=== PATIENT | male | born 1965 | race Caucasian/White ===

== ENCOUNTER 2021-02-28 19:00 | Inpatient (IN) | payer OTHER ==
[~2021-02-28] VITALS: Ht 165.1 cm; Wt 83.9 kg
[2021-02-28 19:51] LABS: HEMOGLOBIN 14.8 gm/dl (14.0-17.5); RED BLOOD COUNT 5.22 M/UL (4.20-5.50)
[2021-02-28 20:13] LABS: BUN/CREATININE RATIO 24 (0-10)
[2021-03-02 04:49] LABS: HEMOGLOBIN 12.9 gm/dl (14.0-17.5); WHITE BLOOD COUNT 10.5 K/UL (4.5-11.0)
[2021-03-02 05:02] LABS: RED BLOOD COUNT 4.64 M/UL (4.20-5.50)
[2021-03-02 05:21] LABS: BUN/CREATININE RATIO 27 (0-10)
[2021-03-03 04:00] LABS: BUN/CREATININE RATIO 28 (0-10)
--- NOTE | 2021-03-03 17:21 | NUR ---
03/03/21 1720 PT SISTER HERE TO SEE PT, UPDATED ON PT STATUS. PT AWAKE, FOLLOWS WITH EYES, FOLLOWS MOST COMMANDS RAISE LEFT ARM, WIGGLE TOES (BILAT), WILL WAVE AND GIVE THUMBS UP UPON COMMAND. CONT TO BE APHASIC AND UNABLE TO MOVE RIGHT ARM.
--- NOTE | 2021-03-06 18:24 | NUR ---
PRINTED VITAL SIGN TREND FOR THE DAY AND PLACED IN CHART
--- NOTE | 2021-03-07 05:09 | NUR ---
PT NOTED TO BE SICK TO HIS STOMACH AND DRY HEAVING. NOTIFIED DR HARRISON SINCE HE HAD NO PRN NAUSEA ORDERS. ORDERS RECIEVED AND COMPLETED.
[2021-03-08 03:24] LABS: RED BLOOD COUNT 3.84 M/UL (4.20-5.50)
[2021-03-08 03:28] LABS: HEMOGLOBIN 10.7 gm/dl (14.0-17.5)
[2021-03-08 04:10] LABS: BUN/CREATININE RATIO 23 (0-10)
[2021-03-09 03:04] LABS: HEMOGLOBIN 10.7 gm/dl (14.0-17.5); RED BLOOD COUNT 3.88 M/UL (4.20-5.50); WHITE BLOOD COUNT 9.8 K/UL (4.5-11.0)
[2021-03-09 03:30] LABS: BUN/CREATININE RATIO 20 (0-10)
[2021-03-10 02:41] LABS: HEMOGLOBIN 11.3 gm/dl (14.0-17.5); RED BLOOD COUNT 4.1 M/UL (4.20-5.50); WHITE BLOOD COUNT 9.2 K/UL (4.5-11.0)
[2021-03-10 03:12] LABS: BUN/CREATININE RATIO 19 (0-10)
--- NOTE | 2021-03-10 13:24 | NUR ---
PATIENT RETURNS FROM SWALLOW EVAL PER RADIOLOGY STAFF.
[2021-03-11 03:35] LABS: HEMOGLOBIN 12.3 gm/dl (14.0-17.5); RED BLOOD COUNT 4.38 M/UL (4.20-5.50); WHITE BLOOD COUNT 9.9 K/UL (4.5-11.0)
[2021-03-11 03:55] LABS: BUN/CREATININE RATIO 22 (0-10)
[2021-03-12 03:31] LABS: RED BLOOD COUNT 4.37 M/UL (4.20-5.50)
[2021-03-12 04:00] LABS: BUN/CREATININE RATIO 29 (0-10)
[2021-03-13 03:07] LABS: HEMOGLOBIN 12.3 gm/dl (14.0-17.5); RED BLOOD COUNT 4.48 M/UL (4.20-5.50)
[2021-03-13 03:20] LABS: BUN/CREATININE RATIO 32 (0-10)
--- NOTE | 2021-03-13 16:22 | NUR ---
REPORT GIVEN TO [facility]K ON MED SURG 4 WITH ALL QUESTIONS ASKED AND ANSWERED
[2021-03-14 06:38] LABS: HEMOGLOBIN 13.1 gm/dl (14.0-17.5); RED BLOOD COUNT 4.74 M/UL (4.20-5.50)
[2021-03-14 07:17] LABS: BUN/CREATININE RATIO 22 (0-10)
--- NOTE | 2021-03-14 08:16 | NUR ---
PATIENT HAD CRITICAL LAB VALUE POTASSIUM OF 5.7. PROVIDER NOTIFIED SAID SHE WOULD PUT IN SOME ORDERS TO TRY TO GET PATIENT'S POTASSIUM DOWN.
[2021-03-15 04:59] LABS: HEMOGLOBIN 12.9 gm/dl (14.0-17.5); RED BLOOD COUNT 4.63 M/UL (4.20-5.50); WHITE BLOOD COUNT 13.1 K/UL (4.5-11.0)
[2021-03-15 05:11] LABS: BUN/CREATININE RATIO 31 (0-10)
--- NOTE | 2021-03-16 06:12 | NUR ---
PT DEVELOPED A COUGH WITH FEVER NOT CONTROLLED WITH TYLENOL. NOTIFIED FOR ORDER FOR COVID SWAB AND CHEST XRAY. RESULTS ARE POSITIVE FOR COVID. PLACE PATIENT IN ISOLATION, NOTIFIED DR. HARRISON AND [facility].
[2021-03-16 08:56] LABS: HEMOGLOBIN 11.9 gm/dl (14.0-17.5); RED BLOOD COUNT 4.39 M/UL (4.20-5.50)
[2021-03-16 09:23] LABS: WHITE BLOOD COUNT 5.1 K/UL (4.5-11.0)
[2021-03-16 09:31] LABS: BUN/CREATININE RATIO 31 (0-10)
[2021-03-17 07:31] LABS: HEMOGLOBIN 12.1 gm/dl (14.0-17.5); RED BLOOD COUNT 4.47 M/UL (4.20-5.50); WHITE BLOOD COUNT 5.7 K/UL (4.5-11.0)
[2021-03-17 07:48] LABS: BUN/CREATININE RATIO 28 (0-10)
[2021-03-18 03:41] LABS: HEMOGLOBIN 12.4 gm/dl (14.0-17.5); RED BLOOD COUNT 4.6 M/UL (4.20-5.50); WHITE BLOOD COUNT 4.4 K/UL (4.5-11.0)
[2021-03-18 04:43] LABS: BUN/CREATININE RATIO 27 (0-10)
[2021-03-19 03:12] LABS: HEMOGLOBIN 13.1 gm/dl (14.0-17.5); RED BLOOD COUNT 4.84 M/UL (4.20-5.50); WHITE BLOOD COUNT 5.1 K/UL (4.5-11.0)
[2021-03-19 03:32] LABS: BUN/CREATININE RATIO 32 (0-10)
--- NOTE | 2021-03-19 04:31 | NUR ---
APRROX 0300 DOBHOFF D/C PER MD ORDER. PT TOLERATED WELL.
[2021-03-20 06:58] LABS: HEMOGLOBIN 13.8 gm/dl (14.0-17.5); RED BLOOD COUNT 4.98 M/UL (4.20-5.50); WHITE BLOOD COUNT 5.5 K/UL (4.5-11.0)
[2021-03-20 07:14] LABS: BUN/CREATININE RATIO 28 (0-10)
[2021-03-21 05:11] LABS: HEMOGLOBIN 13.3 gm/dl (14.0-17.5); RED BLOOD COUNT 4.83 M/UL (4.20-5.50)
[2021-03-21 05:28] LABS: BUN/CREATININE RATIO 30 (0-10)
--- NOTE | 2021-03-22 11:50 | NUR ---
DR. MACDONALD NOTIFIED REGARDING PLACEMENT OF PATIENTS PEG TUBE. SHE IS WORKING OUT ARRANGMENTS FOR SURGERY AND WILL NOTIFY NURSE AND PATIENT WHEN SURGERY WILL BE SCHEDULED.
--- NOTE | 2021-03-22 16:09 | NUR ---
SURGERY CONSENT OBTAINED FROM PRASAD RODRIGUEZ (DAUGHTER) AND VERIFIED BY LAURIE BACA RN. CONSENT SIGNED AND PLACED IN PATIENT CHART.
[2021-03-23 04:33] LABS: HEMOGLOBIN 12.1 gm/dl (14.0-17.5); RED BLOOD COUNT 4.45 M/UL (4.20-5.50); WHITE BLOOD COUNT 5.2 K/UL (4.5-11.0)
[2021-03-23 04:54] LABS: BUN/CREATININE RATIO 21 (0-10)
[2021-03-23] MEDS ORDERED: IPRAT-ALBUT 0.5-3 ML NEB (17:19)
[2021-03-23] MEDS ORDERED: CLONIDINE1 EAC1 TOP (17:19)
[2021-03-23] MEDS ORDERED: ASPIRIN EC81 MG PO (17:19)
[2021-03-23] MEDS ORDERED: ATORVASTATIN CA20 MG PO (17:19)
[2021-03-24 04:50] LABS: HEMOGLOBIN 12.1 gm/dl (14.0-17.5); RED BLOOD COUNT 4.58 M/UL (4.20-5.50); WHITE BLOOD COUNT 5.7 K/UL (4.5-11.0)
[2021-03-24 05:14] LABS: BUN/CREATININE RATIO 19 (0-10)
[2021-03-25 03:44] LABS: HEMOGLOBIN 11.7 gm/dl (14.0-17.5); RED BLOOD COUNT 4.31 M/UL (4.20-5.50); WHITE BLOOD COUNT 6.4 K/UL (4.5-11.0)
[2021-03-25 04:00] LABS: BUN/CREATININE RATIO 19 (0-10)
[2021-03-25] MEDS ORDERED: HYDRALAZINE HCL25 MG PO (10:18)
[2021-03-26 07:07] LABS: HEMOGLOBIN 11.3 gm/dl (14.0-17.5); RED BLOOD COUNT 4.13 M/UL (4.20-5.50)
[2021-03-26 07:41] LABS: BUN/CREATININE RATIO 14 (0-10)
== END 2021-03-26 15:03 | DRG 64 ==
LOC: ER1 19:00 → PROG CARE 03-01 08:17 → CDU 03-01 08:17 → MED SURG 4 03-01 08:17 → M/S 03-01 08:17 → 3 EAST 03-01 15:05 → M/S 03-01 23:41 → PROG CARE 03-02 10:41 → MED SURG 4 03-13 16:58
PROVIDERS: Internal Medicine; Physician Assistant; Student in an Organized Health Care Education/Training Program; ADMIT Internal Medicine
PROC: B24BZZZ Ultrasonography of Heart with Aorta (ICD-10-PCS; principal; 2021-03-01)
PROC: 0DH63UZ Insertion of Feeding Device into Stomach, Percutaneous Approach (ICD-10-PCS; 2021-03-01)
PROC: 3E0G76Z Introduction of Nutritional Substance into Upper GI, Via Natural or Artificial Opening (ICD-10-PCS; 2021-03-01)
PROC: 8E0ZXY6 Isolation (ICD-10-PCS; 2021-03-18)
DX: I63.312 Cerebral infarction due to thrombosis of left middle cerebral artery (principal); I21.A1 Myocardial infarction type 2; A41.9 Sepsis, unspecified organism; G81.91 Hemiplegia, unspecified affecting right dominant side; G93.40 Encephalopathy, unspecified; E87.1 Hypo-osmolality and hyponatremia; I16.0 Hypertensive urgency; F17.210 Nicotine dependence, cigarettes, uncomplicated; E87.5 Hyperkalemia; R29.714 NIHSS score 14; I10 Essential (primary) hypertension; R00.1 Bradycardia, unspecified; I07.1 Rheumatic tricuspid insufficiency; E78.5 Hyperlipidemia, unspecified; I45.81 Long QT syndrome; I45.10 Unspecified right bundle-branch block; I48.91 Unspecified atrial fibrillation; E83.42 Hypomagnesemia; R47.01 Aphasia; R13.10 Dysphagia, unspecified; R47.81 Slurred speech; Z91.14 Patient's other noncompliance with medication regimen; Z79.01 Long term (current) use of anticoagulants; Z89.112 Acquired absence of left hand; Z91.041 Radiographic dye allergy status; Z79.82 Long term (current) use of aspirin
CPT/HCPCS: 36415; 70450; 70496; 70498; 71045; 72170; 74230; 80048; 80053; 80061; 82550; 82553; 82962; 83036; 83735; 83880; 84100; 84132; 84484; 85025; 85027; 85610; 85730; 87040; 92507; 92526; 92610; 92611-GN; 93005; 94760; 96374; 97110; 97110-GP-CQ; 97112; 97116; 97162; 97164; 97166; 97168; 97530; 97530-GP-CQ; 99285; A6212; J0360; J1335; J1940; J2001; J2405; J2704; J2765; J3475; J7030; J7040; Q9967; U0002